=== PATIENT | female | born 1955 | race Two or more races ===

== ENCOUNTER 2023-02-12 12:14 | Emergency (ER) | payer MEDICARE, MEDICAID ==
[~2023-02-12] VITALS: Ht 154.9 cm; Wt 86.3 kg
[2023-02-12 13:13] VITALS: BP 175/91
[2023-02-12] MEDS ORDERED: HYDROcodone-ACET 5/325MG TAB PO ONE (13:15)
[2023-02-12] MEDS ORDERED: METH750T22 PO (13:51)
[2023-02-12] MEDS ORDERED: IBUP800T27 PO (13:51)
== END 2023-02-12 13:58 | disposition home or self-care (01) ==
LOC: ER 12:14
DX: S23.41XA Sprain of ribs, initial encounter (principal); I10 Essential (primary) hypertension; E11.9 Type 2 diabetes mellitus without complications; W01.198A Fall on same level from slipping, tripping and stumbling with subsequent striking against other object, initial encounter; Y93.89 Activity, other specified; Y92.89 Other specified places as the place of occurrence of the external cause; Y99.8 Other external cause status
CPT/HCPCS: 71250

== ENCOUNTER 2025-07-10 14:37 | Emergency (ER) | payer OTHER ==
[~2025-07-10] VITALS: Ht 154.9 cm; Wt 83.3 kg
[~2025-07-10 14:37] MED LIST: IBUP-1456 PO; METH-1182 PO
--- NOTE | 2025-07-10 16:14 | DVH ---
CLINICAL INDICATION: Possible fracture to 4th toe TECHNIQUE: XY R FOOT 3 VIEW XRAY Comparison: None FINDINGS/IMPRESSION: : There is no evidence of acute fracture or dislocation. Soft tissues are unremarkable.
--- NOTE | 2025-07-10 16:17 | ED.PDOC ---
Musculoskeletal HPI Comments 69 year-old female presents to the ED for chief complaint of lower extremity pain. Patient states that yesterday when she was walking in her house she bumped her right 4th toe on her base of her bed. The patient states that she has since been having redness and pain to the right 4th toe. The patient states that she woke up-today with noted increasing pain and came to the ED for further evaluation. Patient in the ED rates the pain 8/10 constant with noted exacerbating factor of ambulation and no relieving factors. Patient in the ED has noted bruising of the right 4th toe otherwise no swelling or associated symptoms are noted. Patient in the ED otherwise denies any other symptoms at this time. Chief Complaint: Lower Extremity Time Seen by MD: 16:00 Primary Care Provider: JOSH Fonseca Notes: Medications, Allergies Allergies: Coded Allergies: NO KNOWN ALLERGIES (Unverified , 02/12/23) Home Meds Active Scripts Methocarbamol (Methocarbamol) 750 Mg Tab, 750 MG PO BID, #20 TAB Prov:JEANETTE WINKLER 02/12/23 Ibuprofen (Ibuprofen) 800 Mg Tab, 1 TAB PO TID, #30 TAB Prov:JEANETTE WINKLER 02/12/23 Information Source: Patient Mode of Arrival: Ambulatory Past Medical History PAST MEDICAL HISTORY: DM, HTN Surgical History: Denies all surgeries EELER History: Denies all EELER Hx Family History Family History: Reviewed,noncontributory to illness Social History Smoker: Non-Smoker Alcohol: Denies ETOH Use Drugs: Denies Drug Use Lives In: Home All Other Systems: Reviewed and Negative (See HPI) Physical Exam General Appearance: No Apparent Distress, Normal HEENT: Normal ENT Inspection, Pharynx Normal, TMs Normal Neck: Full Range of Motion, Non-Tender, Normal, Normal Inspection Respiratory: Chest Non-Tender, Lungs Clear, No Accessory Muscle Use, No Respiratory Distress, Normal Breath Sounds Cardiovascular: No Edema, No JVD, No Murmur, No Gallop, Normal Peripheral Pulses, Regular Rate/Rhythm Breast Exam: Deferred Gastrointestinal: No Organomegaly, Non Tender, No Pulsatile Mass, Normal Bowel Sounds, Soft Genitalia: Deferred Pelvic: Deferred Rectal: Deferred Extremities: No calf tenderness, Normal capillary refill, Normal inspection, Normal range of motion, Non-tender, No pedal edema Musculoskeletal : Apperance: Normal Neurologic: Alert, 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 Was a procedure done?: No Differential Diagnosis EXT Differential Diagnosis: Fracture, Sprain, Strain, Neurovascular injury X-Ray, Labs, Meds, VS Vital Signs Date Time Temp Pulse Resp B/P (MAP) Pulse Ox O2 Delivery O2 Flow Rate FiO2 07/10/25 14:39 98.3 58 13 145/66 96 98.3 [facility] [id number] [address] Ph: [phone] DIAGNOSTIC IMAGING Diagnostic Imaging Report : [id number] Signed PATIENT: ERICA GANDARAACCT: [id number] UNIT: [id number] : 1955 LOC: ER ROOM / BED: / AGE / SEX: 69 / F ADM STATUS: REG ER SERVICE [id number] ORDERING PHYSICIAN: SANTA XIE NP PROCEDURE(s): RFOOT - R FOOT 3 VIEW XRAY REASON: Possible fracture to 4th toe ORDER NUMBER(s): [id number], ACCESSION NUMBER(s): [id number] CLINICAL INDICATION: Possible fracture to 4th toe TECHNIQUE: XY R FOOT 3 VIEW XRAY Comparison: None FINDINGS/IMPRESSION: : There is no evidence of acute fracture or dislocation. Soft tissues are unremarkable. ATED BY: CLAY KING MD DICTATED DATE/TIME: 07/10/251611 SIGNED BY: CLYA KING MD SIGNED DATE/TIME: 07/10/25 161 CC: X-Ray, Labs, Meds, VS Comment 69 year-old female presents to the ED for chief complaint of lower extremity pain. Patient arrives alert and oriented, ABC's intact, afebrile, vital signs stable, saturating well in room air Diagnostic imaging ordered by me and results interpreted by radiology : Labs in the ED showed (pertinent+ and then pertinent-) Patient was given:_. Tolerated medications with no adverse reaction. Additional MDM Review of External, Non-ED records: External records reviewed. Discussion with independent historian (EMS, family) history obtained from the patient/parents (if applicable) at bedside Chronic conditions affecting care: None Social determinants of health affecting care: None Consideration of admission (observation or admission): I considered escalation of care to admission for this patient, however given the reassuring workup, the patient is safe for outpatient management. Discussion with the Radiology: No Tests considered but not performed: Prescription medication considered but not given: 12 lead EKG interpretation: Patient Education/Counseling: Diagnosis, Treatment Family Education/Counseling: No Family Present Departure 1 Departure Time of Disposition: 16:32 Impression: Primary Impression: Toe sprain Qualified Codes: S93.509A - Unspecified sprain of unspecified toe(s), initial encounter Disposition: HOME / SELF CARE / HOMELESS Condition: Stable e-Prescriptions Acetaminophen (Acetaminophen) 500 Mg Tab 500 MG PO Q6HP PRN for 10 Days, #40 TAB 0 Refills Prov: SANTA XIE NP 07/10/25 Critical Care Note Critical Care Time?: No Stability Stability form required: No Heart Score Heart Score: Heart Score Response (Comments) Value History N/A 0 EKG N/A 0 Age N/A 0 Risk Factors N/A 0 Troponin N/A 0 Total 0 I personally scribed for SANTA XIE NP (FELICIANO) on 07/10/25 at 16:17. Electronically submitted by Clarke Hurst (CHEPE). I personally scribed for SANTA XIE NP (FELICIANO) on 07/10/25 at 16:17. Electronically submitted by Clarke GUERRERO). SANTA XIE NP Jul 10, 2025 16:17
[2025-07-10] MEDS ORDERED: ACET500T58 PO (16:33)
[2025-07-10 16:36] VITALS: BP 134/68; PULSE 68; RESP 16; TEMP 99.1; O2SAT 97
== END 2025-07-10 16:40 | disposition home or self-care (01) ==
LOC: ER 14:37
DX: S93.504A Unspecified sprain of right lesser toe(s), initial encounter (principal); S90.31XA Contusion of right foot, initial encounter; E11.9 Type 2 diabetes mellitus without complications; I10 Essential (primary) hypertension; Z79.1 Long term (current) use of non-steroidal anti-inflammatories (NSAID); Z79.899 Other long term (current) drug therapy; X58.XXXA Exposure to other specified factors, initial encounter; Y93.01 Activity, walking, marching and hiking; Y92.89 Other specified places as the place of occurrence of the external cause; Y99.8 Other external cause status
CPT/HCPCS: 73630